=== PATIENT | female | born 1970 | race African-American/Black ===

== ENCOUNTER 2019-06-09 13:13 | Outpatient (CLI) | payer MEDICAID ==
[~2019-06-09] VITALS: Ht 162.6 cm; Wt 92.1 kg
[2019-06-09 13:44] VITALS: BP 122/86
[2019-06-09] MEDS ORDERED: GABAPENTIN300 MG ORAL (15:35)
[2019-06-09] MEDS ORDERED: SYNTHROID75 MCG ORAL (15:35)
[2019-06-09] MEDS ORDERED: IBUPROFEN600 MG ORAL (15:35)
[2019-06-09] MEDS ORDERED: ZOFRAN4 M3 ORAL (15:35)
[2019-06-09] MEDS ORDERED: FLUOXETINE HCL20 MG ORAL (15:35)
[2019-06-09] MEDS ORDERED: CYCLOBENZAPRINE10 MG ORAL (15:35)
[2019-06-09] MEDS ORDERED: OMEPRAZOLE20 M2 ORAL (15:35)
--- NOTE | 2019-06-09 17:30 | Consultation ---
DATE OF CONSULTATION: 06/09/2019 CONSULTING PHYSICIAN: Sean Hirsch M.D. CHIEF COMPLAINT: Abdominal pain. HISTORY OF PRESENT ILLNESS: This is a very pleasant 48-year-old female admitted to the hospital ER in March with complaint of chest pain/abdominal pain. The patient apparently was found to have gallstones, questionable dilated common bile duct. I do not have any imaging studies results of papers and the patient was given omeprazole and Zofran and was told to follow up with the primary care physician. Since then, the patient has seen a GI doctor, which apparently told the patient does not know why she is in his office. The patient is here for a second opinion. Apparently since this March episode, she does not have any more obvious symptoms. PAST MEDICAL HISTORY: 1. History of hypothyroidism. 2. GERD. PAST SURGICAL HISTORY: Hysterectomy. MEDICATIONS: Please see medication reconciliation list. FAMILY HISTORY: Mother had breast cancer. SOCIAL HISTORY: The patient occasionally drinks alcohol. ALLERGIES: No known drug allergies. REVIEW OF SYSTEMS: Positive for abdominal pain and GERD. PHYSICAL EXAMINATION: VITAL SIGNS: Temperature 97.6, blood pressure is 122/86, pulse 81, respirations 20. HEENT: Normocephalic and atraumatic. Sclerae anicteric. NECK: Supple. No lymphadenopathy CARDIOVASCULAR: Regular rate and rhythm. Plus S1-S2. LUNGS: Clear to auscultation bilaterally. ABDOMEN: Positive bowel sounds. Soft and nontender. No rebound. No guarding. No peritoneal sign. EXTREMITIES: No cyanosis, no clubbing, no edema. ASSESSMENT AND PLAN: This is a 48-year-old female with chest pain/abdominal pain in March with 1 episode. I am not sure exactly the gallstones was the cause for abdominal pain and ER admission in March. Seems that improved by omeprazole and Zofran combination. The patient has not had a recurrent symptoms since then. At this point, I recommend the patient to hold off on doing anything. Continue current medications. She was explained the signs and symptoms of gallstones and was told if she has these symptoms, then she can have the Primary to refer her to a surgeon. Meanwhile, the patient was told to come back in 2 years for colonoscopy. Sean Kendra Hirsch DR: ADIN JOB#: [id number] CC:
== END 2019-06-09 16:20 | disposition home or self-care (01) ==
LOC: PAN 13:13
DX: R10.9 Unspecified abdominal pain (principal); R07.9 Chest pain, unspecified; K21.9 Gastro-esophageal reflux disease without esophagitis; Z90.710 Acquired absence of both cervix and uterus; E03.9 Hypothyroidism, unspecified
CPT/HCPCS: G0463